=== PATIENT | male | born 1975 | race Caucasian/White ===

== ENCOUNTER 2023-11-17 20:24 | Emergency (ER) | payer OTHER, SELFPAY ==
[2023-11-17 20:26] VITALS: BP 161/103; BMI 34.4
--- NOTE | 2023-11-17 21:31 | ED.GENMED ---
History of Present Illness
General
Chief Complaint: Extremity Pain (non-traumatic)
Source: patient
Time Seen by Provider: 11/17/23 21:17
Travel History
Have you had any contact with someone who has COVID-19?: No
Do you have any symptoms of coronavirus? Fever > 100 degrees, chills, cough, shortness of breath, sore throat, loss of taste or smell, muscle aches, or headache?: No
History of Present Illness
History of Present Illness:
48-year-old male presents to the emergency room complaining of injury to his left ankle. Patient was playing tennis when he felt a pronounced pop in the back of his left ankle. He fell to the ground. He was unable to plantarflex his foot.
Patient states he tore his Achilles tendon on the right ankle several years ago and what he is experiencing today is very reminiscent of that. Patient is an abrasion to his right knee as well.
Past History
Past History
ED Past Medical History: None
ED Past Surgical History: Orthopedic
Social History
Tobacco: Smoker
Alcohol: Daily
Personal:
Living: with family
Employment: Employed
Phy Exam
Physical Exam
Physical Exam:
General: Awake, Alert, Oriented X3. No acute distress.
Vitals: unremarkable
Head: Atraumatic
Eyes: Pupils equal, EOMI
Throat: Airway intact, no exudates
Neuro: Nonfocal
Skin: Warm, dry, no rash
Extremities: pulses equal b/l, no edema. Palpable defect over the left Achilles tendon. Patient has no ability to plantarflex on the left. Sensation intact
Course
Orders/Labs/Results
Orders:
Orders
11/17/23 21:29
Splints/Slings/Crut- Treatment ONCE
Crutches: Yes
Location: Left
Type of Splint: Short Leg
Comment: some plantar flexion
Tetanus/Diphth/Acelpertussis [Adacel] 0.5 ml IM .ONCE ONE
Vital Signs
Initial and Last Documented VS:
Initial Vital Signs
Temp Pulse Resp BP Pulse Ox
98.5 F 101 20 161/103 98
11/17/23 20:26 11/17/23 20:26 11/17/23 20:26 11/17/23 20:26 11/17/23 20:26
Last Documented Vital Signs
Temp Pulse Resp BP Pulse Ox
98.5 F 101 20 161/103 98
11/17/23 20:26 11/17/23 20:26 11/17/23 20:26 11/17/23 20:26 11/17/23 20:26
MDM/Problems Addressed
Differential Diagnosis Includes:
Full-thickness Achilles tendon rupture, partial-thickness Achilles tendon rupture
MDM/Problems Addressed:
Patient clearly has a Achilles tendon rupture which I suspect is full-thickness. We will place him in a posterior splint with some plantarflexion. Patient will be nonweightbearing and follow-up with Ortho.
*Pulse Oximetry
Patient hypoxic: no
*Critical Care Note
Total Time (30-74mins, 75-104mins- exclusive of procedures): Not Applicable
ED Attending Note
-
Portions of this chart may have been created with voice recognition software.� Occasional wrong word or��sound alike� substitutions may have occurred due to the inherent limitations of voice recognition software.
Discharge Plan
Departure
Patient Disposition: Home (Routine Discharge)
Date of Disposition: 11/17/23
Time of Disposition: 21:31
Patient with high blood pressure during this ER visit?: Yes
Condition: Good
Discharge Problem:
Achilles rupture, left
Prescriptions:
No Action
cefuroxime axetil 500 MG tablet
500 mg PO BID Qty: 14 0RF
doxycycline hyclate 100 MG capsule
100 mg PO Q12 Qty: 14 0RF
cyclobenzaprine 10 mg tablet
10 mg PO TID PRN (Reason: muscle spasm) Qty: 30 0RF
prednisone 20 mg tablet
40 mg PO DAILY Qty: 10 0RF
Referrals:
Neeraj Contreras MD [Non-Admitting Privileges] -
Stand Alone Forms: Return to Work
Interventions
Interventions:
*Risk Screen - Suicide Last Done: 11/17/23 20:26
*General Assessment Last Done: 11/17/23 22:41
*Neglect/Abuse Screening Last Done: 11/17/23 20:26
ED- Fall Risk Assessment Last Done: 11/17/23 22:41
*ED COVID-19 Vaccine History Last Done: 11/17/23 20:26
*Nursing Disposition Last Done: 11/17/23 22:41
ED-Skin Assessment Last Done: 11/17/23 22:38
ED-Peripheral Vascular Assessment Last Done: 11/17/23 22:38
ED-Musculoskeletal Assessment Last Done: 11/17/23 22:38
Discharge Date and Time
Discharge Date/Time: 11/17/23 22:42
[2023-11-17] MEDS: ADACEL 0.5 ML IM (22:22)
== END 2023-11-17 22:42 | disposition home or self-care (01) ==
LOC: EMR 20:24
PROVIDERS: EMERGENCY PHYSICIAN Emergency Medicine; FAMILY PHYSICIAN Family Medicine
DX: S86.012A Strain of left Achilles tendon, initial encounter (principal); S80.211A Abrasion, right knee, initial encounter; X50.1XXA Overexertion from prolonged static or awkward postures, initial encounter; F17.200 Nicotine dependence, unspecified, uncomplicated; Z23 Encounter for immunization; Y93.73 Activity, racquet and hand sports
CPT/HCPCS: 99283; 90471; 29125; 90715

== ENCOUNTER 2023-11-24 06:18 | Day surgery (SDC) | payer OTHER, SELFPAY ==
[2023-11-19 13:43] VITALS: BMI 35.9
[2023-11-24] VITALS (7 sets, daily range): BP systolic 125–163; BP diastolic 77–101; BMI 35.9
[2023-11-24] MEDS: VANCOCIN 300 ML IV (12:08)
[2023-11-24] MEDS: VANCOCIN 300 MG IV (12:08)
[2023-11-24] MEDS: TYLENOL 1000 MG PO (12:28)
[2023-11-24] MEDS: CELEBREX 200 MG PO (12:28)
== END 2023-11-24 17:00 | disposition home or self-care (01) ==
LOC: SDS 06:18
PROVIDERS: ATTENDING PHYSICIAN Student in an Organized Health Care Education/Training Program; FAMILY PHYSICIAN Family Medicine; OTHER PHYSICIAN Internal Medicine Cardiovascular Disease
DX: S86.012A Strain of left Achilles tendon, initial encounter (principal); M76.62 Achilles tendinitis, left leg
CPT/HCPCS: 27650; 36415; 87070; 87147; 93005; C1776

== ENCOUNTER → 2023-12-23 13:47 | Outpatient (REF) | payer OTHER, SELFPAY | LOC: DHCBS HW 13:47 | PROVIDERS: ATTENDING PHYSICIAN Internal Medicine Cardiovascular Disease; FAMILY PHYSICIAN Family Medicine | DX: I49.3 Ventricular premature depolarization (principal) | CPT/HCPCS: 93306 ==

== ENCOUNTER → 2024-04-20 14:39 | Outpatient (REF) | payer OTHER, SELFPAY | LOC: HWRAD 14:39 | PROVIDERS: ATTENDING PHYSICIAN Podiatrist Foot & Ankle Surgery; FAMILY PHYSICIAN Family Medicine | DX: M79.671 Pain in right foot (principal); M79.672 Pain in left foot | CPT/HCPCS: 73590; 73610; 73630 ==

== ENCOUNTER → 2025-02-15 08:26 | Outpatient (REF) | payer OTHER, SELFPAY | LOC: PAVMRI 08:26 | PROVIDERS: ATTENDING PHYSICIAN Internal Medicine Cardiovascular Disease; FAMILY PHYSICIAN Family Medicine | DX: I49.3 Ventricular premature depolarization (principal); R94.39 Abnormal result of other cardiovascular function study; I10 Essential (primary) hypertension | CPT/HCPCS: 75561; 75565; A9585 ==